=== PATIENT | male | born 1975 | race Caucasian/White ===

== ENCOUNTER 2018-02-16 12:50 | Emergency (ER) | payer SELFPAY ==
--- NOTE | 2018-02-16 13:14 | UC ---
Cardiac HPI - HPI Summary HPI Summary: This patient is a 42 year old male presenting to [facility] [place] with a chief complaint of intermittent left sided chest pain since earlier today. Patient states he was dizzy and nauseated at work today, which developed into the left sided chest pain and some shortness of breath. The pain is intermittent. The pain is rated 3/10 in severity. Symptoms aggravated by nothing. Symptoms alleviated by nothing. Patient states that when he experienced the symptoms, his anxiety may have exacerbated the symptoms. Patient additionally reports blurry vision, SOB. He has a significant history of right lung resection due to emphysema and recurrent pneumothorax and has started smoking again . He reports he ate only a donut in morning and went to work . 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 Patient denies fever, chills, abdominal pain , nausea , vomiting or diarrhea. No sick contacts. No diaphoresis. He also has an abscess in the area of the right knee that he has been treating on his own for past 2 weeks with soaking with warm water, feels it has improved with time He can fully weight bear and has full ROM > - History of Current Complaint Chief Complaint: UCChestPain Stated Complaint: CHEST PAIN Time Seen by Provider: 02/16/18 13:07 Hx Obtained From: Patient Onset/Duration: Sudden Onset, Lasting Hours, Still Present Timing: Intermittent Episodes Lasting: Current Severity: Mild Pain Intensity: 3 Chest Pain Location: Left Anterior Aggravating Factor(s): Nothing Alleviating Factor(s): Nothing Associated Signs & Symptoms: Positive: Negative - fever, chills, Dizziness, SOB - Allergy/Home Medications Allergies/Adverse Reactions: Allergies Allergy/AdvReac Type Severity Reaction Status Date / Time clindamycin Allergy Hives Verified 02/16/18 13:01 rifaximin Allergy Shortness Verified 02/16/18 13:01 of Breath PMH/Surg Hx/FS Hx/Imm Hx Previously Healthy: No Other Endocrine History: Negative: Diabetes, Thyroid Disease Cardiovascular History: Hypertension Other Cardiovascular History: negative Respiratory History: COPD Other Respiratory History: negative Other GI/ History: negaitve Other Neurological History: negatieve Other Psychological History: negative Other Cancer History: negative - Surgical History Surgical History: Yes Surgery Procedure, Year, and Place: right lobectomy -2010 at [facility] [place]. back surgery - 04/2008 at [facility] [place] - Family History Known Family History: Positive: Hypertension - Social History Alcohol Use: Weekly Substance Use Type: Marijuana Smoking Status (MU): Heavy Every Day Tobacco Smoker Type: Cigars Review of Systems Constitutional: Negative, Fatigue, Other - weakness Skin: Rash - psoriatic Eyes: Blurred Vision ENT: Negative Respiratory: Shortness Of Breath Cardiovascular: Chest Pain Gastrointestinal: Negative Genitourinary: Negative Motor: Negative Neurovascular: Negative Musculoskeletal: Negative Neurological: Negative, Other - dizziness Psychological: Negative Is Patient Immunocompromised?: No All Other Systems Reviewed And Are Negative: Yes Physical Exam - Summary Physical Exam Summary: Appearance: Well-Appearing, No Pain Distress, Well-Nourished Eyes: conjunctiva clear, no discharge ENT: Hearing grossly normal, no muffled/hoarse voice. Neck: Normal, Supple Respiratory/Lung Sounds: rhonchi, No accessory muscle use, no crackles. Cardiovascular: RRR, No murmur Abdomen: Nontender, Soft, no guarding, not distended Bowel Sounds: Present Musculoskeletal: Normal Neurological: Alert, muscle tone normal Psychiatric:Normal, age appropriate behavior Skin: patches of psoriasis on his back and upper extremities Right knee: area of abscess notes with 2 possible drainage sites , no exudates, no fluctuation. No active pus discharge. Triage Information Reviewed: Yes Vital Signs: Initial Vital Signs Temp 98.9 F 02/16/18 12:53 Pulse 95 02/16/18 12:53 Resp 20 02/16/18 12:53 BP 155/93 02/16/18 12:53 Pulse Ox 98 02/16/18 12:53 Vital Signs Reviewed: Yes Diagnostics - EKG EKG Comments: An EKG, taken 1248, reveals NSR (85 BPM), WI normal, QRS normal, no ST elevation , no LBBB, RSR in V1, which is similar from EKG at 12/15/09, normal axis, no hypertrophy Cardiac Rate: NL Cardiac Rhythm: Sinus: Normal ST Segment: Normal EKG Comparison: No Significant Change - Assessment/Plan Course Of Treatment: This patient is a 42 year old male presenting to [facility] [place] with a chief complaint of left sided chest pain since earlier today. Patient states he was dizzy and nauseated at work today, which developed into the left sided chest pain. In the UC course, EKG obtained- no acute changes. the patient was given Albuterol 2.5mg INH. Orthostatic vital were positive .Glucose levels are normal at 101, patient feels better after nebulizer treatment and auscultation of of lung with improvement as well. We discussed option of iv fluids, but patient states he wishes to go home and will drink PO fluids on his own as he was feeling better since his arrival . Patient was diagnosed with dehydration, COPD, and right knee abscess. Patient will be discharged with a prescription of Bactrim and advised to follow up with PCP in 3 days. He has albuterol inhaler at home and will use the inhaler if he feels any shortness of breath . The patient is agreeable with this plan. - Clinical Impression Provider Diagnoses: Dehydration. COPD. Abscess Discharge - Sign-Out/Discharge Documenting (check all that apply): Patient Departure All imaging exams completed and their final reports reviewed: Yes - EKG, POC glucose - Discharge Plan Condition: Stable Disposition: HOME Prescriptions: Sulfamethox/Trimethoprim DS* [Bactrim DS 800/160 TAB*] 1 tab PO BID 10 Days #20 tab Patient Education Materials: Dehydration (ED), COPD (Chronic Obstructive Pulmonary Disease) (ED), Abscess (ED) Referrals: [facility] [place] PHYSICIAN REFERRAL [Outside] - 2 Days Additional Instructions: Please start taking the medication as prescribed to the pharmacy for your knee infection . Follow up with your primary care doctor in 2 days. Patients blood pressure slightly high in Urgent care today , plan follow up with PCP for better control Return to Urgent care / ER if symptoms get worse. - Billing Disposition and Condition Condition: STABLE Disposition: Home - Attestation Statements Document Initiated by Sandra: Yes Documenting Scribe: Anisa Torres Provider For Whom Sandra is Documenting (Include Credential): Estelita Emery MD Scribe Attestation: Anisa Arenas, scribed for Estelita Emery MD on 02/16/18 at 1556. Scribe Documentation Reviewed: Yes Provider Attestation: The documentation as recorded by the Anisa husain accurately reflects the service I personally performed and the decisions made by , Estelita Emery MD
[2018-02-16] MEDS ORDERED: Albuterol 2.5 MG/3 ML NEB.SOL* (0.083%) INH ONE (13:37)
--- NOTE | 2018-02-19 15:02 | ED ---
Progress - Progress Note Progress Note: Got a call from pharmacy that there is documentation of him allergic to sulfa. During the urgent care visit, he reported allergy to clindamycin and rifaximin. He has not yet picked up the antibiotic. I spoke to pharmacy and cancelled the script. I called him at the number provided and left a voicemail to call back. Plan to prescribe a different antibiotic for the knee infection - likely lkeflex. Awaiting a call back. Course/Dx - Course Course Of Treatment: This patient is a 42 year old male [place] [facility] [place] chief complaint of left sided chest pain since earlier today. Patient states he was dizzy and nauseated at work today, which developed into the left sided chest pain. In the course, EKG obtained- no acute changes. the patient was given Albuterol 2.5mg INH. Orthostatic vital were positive .Glucose levels are normal at 101, patient feels better after nebulizer treatment and auscultation of of lung with improvement as well. We discussed option of iv fluids, but patient states he wishes to go home and will drink PO fluids on his own as he was feeling better since his arrival . Patient was diagnosed with dehydration, COPD, and right knee abscess. Patient will be discharged with a prescription of Bactrim and advised to follow up with PCP in 3 days. He has albuterol inhaler at home and will use the inhaler if he feels any shortness of breath . The patient is agreeable with this plan. Discharge - Sign-Out/Discharge Documenting (check all that apply): Patient Departure All imaging exams completed and their final reports reviewed: Yes - EKG, POC glucose - Discharge Plan Condition: Stable Disposition: HOME Prescriptions: Sulfamethox/Trimethoprim DS* [Bactrim DS 800/160 TAB*] 1 tab PO BID 10 Days #20 tab Patient Education Materials: Dehydration (ED), COPD (Chronic Obstructive Pulmonary Disease) (ED), Abscess (ED) Referrals: [facility] [place] [facility] REFERRAL [Outside] - 2 Days Additional Instructions: Please start taking the medication as prescribed to the pharmacy for your knee infection . Follow up with your primary care doctor in 2 days. Patients blood pressure slightly high in Urgent care today , plan follow up with PCP for better control Return to Urgent care / ER if symptoms get worse. - Billing Disposition and Condition Condition: STABLE Disposition: Home
== END 2018-02-16 14:15 | disposition home or self-care (01) ==
LOC: UCEAST 12:50
DX: E86.0 Dehydration (principal); J44.9 Chronic obstructive pulmonary disease, unspecified; L02.415 Cutaneous abscess of right lower limb; Z88.1 Allergy status to other antibiotic agents; F17.290 Nicotine dependence, other tobacco product, uncomplicated
CPT/HCPCS: 93005; 99203; G0463

== ENCOUNTER 2019-01-11 16:02 | Emergency (ER) | payer MEDICAID ==
[2019-01-11 16:12] VITALS: BP 133/86
--- NOTE | 2019-01-11 16:51 | UC ---
Ear Complaint HPI - HPI Summary HPI Summary: last pm was cleaning pt's R ear and saw a bug in his ear with flashlight. no further treatment but patient states he felt something moving in ear this am and not since. denies pain or drainage. no decreased hearing - History of Current Complaint Chief Complaint: UCEar Stated Complaint: POSS FB IN EAR Time Seen by Provider: 01/11/19 16:39 Hx Obtained From: Patient, Family/Retail Experience Specialist Onset/Duration: Sudden Onset Severity Initially: Mild Severity Currently: None Pain Intensity: 3 Aggravating Factors: Nothing Alleviating Factors: Nothing Associated Signs/Symptoms: Positive: Foreign Body Sensation - Allergies/Home Medications Allergies/Adverse Reactions: Allergies Allergy/AdvReac Type Severity Reaction Status Date / Time clindamycin Allergy Hives Verified 01/11/19 16:12 rifaximin Allergy Shortness Verified 01/11/19 16:12 of Breath Home Medications: Home Medications NK [No Home Medications Reported] 01/11/19 [History Confirmed 01/11/19] PMH/Surg Hx/FS Hx/Imm Hx Previously Healthy: Yes - Surgical History Surgical History: Yes Surgery Procedure, Year, and Place[place] [facility] [place] [facility] [place] - Family History Known Family History: Positive: Hypertension - Social History Occupation: Employed Full-time Lives: With Family Alcohol Use: Rare Substance Use Type: Marijuana Substance Use Comment - Amount & Last Used: occasionally Smoking Status (MU): Heavy Every Day Tobacco Smoker Type: Cigars Cessation Counseling: Patient Advised to Stop Review of Systems All Other Systems Reviewed And Are Negative: Yes Constitutional: Positive: Negative Skin: Positive: Negative Eyes: Positive: Negative ENT: Positive: Other - possible FB R ear. Negative: Sore Throat, Ear Ache Respiratory: Positive: Negative Cardiovascular: Positive: Negative Neurological: Positive: Negative. Negative: Headache Psychological: Positive: Negative Is Patient Immunocompromised?: No Physical Exam Triage Information Reviewed: Yes Appearance: Well-Appearing, No Pain Distress, Well-Nourished Vital Signs: Initial Vital Signs Temp 98.7 F 01/11/19 16:09 Pulse 89 01/11/19 16:09 Resp 18 01/11/19 16:09 BP 133/86 01/11/19 16:09 Pulse Ox 99 01/11/19 16:09 Vital Signs Reviewed: Yes ENT: Positive: Pharynx normal, TMs normal, Other - bilateral ear canals clear, no FB either ear. Negative: Nasal congestion Neck exam: Normal Neck: Positive: Supple Respiratory Exam: Normal Cardiovascular Exam: Normal Neurological Exam: Normal Psychological Exam: Normal Skin Exam: Normal Ear Complaint Course/Dx - Differential Dx/Diagnosis Differential Diagnosis/HQI/PQRI: Foreign Body, Otitis Externa, Otitis Media Provider Diagnosis: Normal ear exam Discharge - Sign-Out/Discharge Documenting (check all that apply): Patient Departure All imaging exams completed and their final reports reviewed: No Studies - Discharge Plan Condition: Good Disposition: HOME Referrals: Kenneth Prabhakar MD [Primary Care Provider] - Additional Instructions: No foreign object found in ear keep ears clean and dry and report any further problems - Billing Disposition and Condition Condition: GOOD Disposition: Home - Attestation Statements Provider Attestation: I was available for consult. This patient was seen by the LULA. The patient was not presented to, seen by, or examined by me. -Ángel
== END 2019-01-11 17:22 | disposition home or self-care (01) ==
LOC: UCEAST 16:02
DX: Z03.89 Encounter for observation for other suspected diseases and conditions ruled out (principal); F17.290 Nicotine dependence, other tobacco product, uncomplicated
CPT/HCPCS: 99211; G0463